=== PATIENT | male | born 1995 | race African-American/Black ===

== ENCOUNTER 2017-03-03 06:35 | Emergency (ER) | payer OTHER ==
[~2017-03-03] VITALS: Ht 188 cm; Wt 85.0 kg
[2017-03-03 06:43] VITALS: TEMP 36.5; O2SAT 100; Ht 188 cm; Wt 85.0 kg
[2017-03-03 08:24] LABS: BENZODIAZEPINE, URINE NEG (NEG); COCAINE,URINE NEG (NEG); PHENCYCLIDINE, URINE NEG (NEG)
[2017-03-03 08:34] LABS: CREATININE 0.96 mg/dl (0.60-1.40)
[2017-03-03 08:35] LABS: CALCIUM 8.9 mg/dl (8.5-10.1)
--- NOTE | 2017-03-03 10:52 | EMERGENCY ROOM VISIT NOTE ---
History Report prepared by Gunner: Luci Ca Under the Supervision of: Dr. Alicia Finley D.O. First contact with patient: 07:03 Chief Complaint: ALCOHOL OVERDOSE Stated Complaint: ALCOHOL Nursing Triage Summary: Patient arrived via EMS. EMS reports patient found in parking lot on campus sleeping on ground. Patient caox2, not alert to location, or state. Patient does not recal how many drinks he had, last thing he remembers, he was leaving a [employer] party. Negative for trauma. 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 He was brought to the ED by EMS who found him sleeping on the ground in a parking lot. He reports he was drinking at a [employer] party. He lives on campus and thinks he was trying to get home. He denies any pain or injury. The history is limited due to the patient's intoxication. 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 Review of Systems See HPI for pertinent positives & negatives. A total of 10 systems reviewed and were otherwise negative. Past Medical & Surgical This is limited secondary to the patient's alcohol intoxication. Family History No pertinent family history stated. Social History Smoking Status: Never Smoker Marital Status: single Occupation Status: [employer] student Current/Historical Medications No Active Prescriptions or Reported Meds Allergies Coded Allergies: No Known Allergies (Unverified , 03/03/17) Physical Exam Vital Signs Date Time Temp Pulse Resp B/P Pulse Ox O2 Delivery O2 Flow Rate FiO2 03/03/17 12:51 104 18 138/83 99 Room Air 03/03/17 10:31 95 20 127/63 100 Room Air 03/03/17 10:05 95 03/03/17 08:31 88 16 100 03/03/17 06:49 88 03/03/17 06:43 36.5 92 16 121/76 100 Room Air 03/03/17 06:43 100 Room Air Physical Exam General: Lethargic, difficult to arouse, answers questions and follows commands. HEENT: Head - normocephalic and atraumatic Pupils are equal, round, and reactive to light at 3 mm. Extraocular eye muscles are intact, and sclera are anicteric. Nose - moist nasal mucosa without discharge. Mouth - moist buccal mucosa. Oropharynx is nonerythematous and there is no tonsillar exudate or edema noted. Neck: Supple; no JVD, nuchal rigidity, cervical lymphadenopathy. Heart: Regular rate and rhythm. There is a normal S1 and S2 with no murmurs, clicks, or gallops appreciated. Lungs: Clear to auscultation bilaterally with no wheezes, rales, or rhonchi. Abdomen: Soft, completely nontender, nondistended, with good bowel sounds. There are no palpable pulsatile masses or hepatosplenomegaly. There is no guarding, rigidity, or rebound noted. Extremities: No evidence of cyanosis, clubbing, or edema. There are easily palpable peripheral pulses. Skin: warm and dry with good turgor and no rashes. Medical Decision & Procedures Laboratory Results 03/03/17 07:35 Test 03/03/17 07:35 03/03/17 07:40 Anion Gap 9.0 mmol/L (3-11) Est Creatinine Clear Calc Drug Dose 142.8 ml/min Estimated GFR () 131.4 Estimated GFR (Non- 113.3 BUN/Creatinine Ratio 11.0 (10-20) Calcium Level 8.9 mg/dl (8.5-10.1) Ethyl Alcohol mg/dL 155.0 mg/dl (0-3) Urine Opiates Screen NEG (NEG) Urine Methadone, Qualitative NEG (NEG) Urine Barbiturates NEG (NEG) Urine Phencyclidine (PCP) Level NEG (NEG) Ur Amphetamine/Methamphetamine NEG (NEG) MDMA (Ecstasy) Screen NEG (NEG) Urine Benzodiazepines Screen NEG (NEG) Urine Cocaine Metabolite NEG (NEG) Urine Marijuana (THC) NEG (NEG) Laboratory results per my review. ED Course 0735: The patient was evaluated in room B3. A complete history and physical examination were performed. Nursing notes ad previous electronic medical records were reviewed. labs were drawn as above. The patient was observed in the prone position to avoid aspiration. He was observing the personnel monitor. 0850: The patient was sleeping comfortably at this time. His vitals were stable. 0945: I reevaluated the patient. His vitals are stable. I woke him up and told him to call for a ride. I discussed the results and treatment plan. He verbalized understanding and agreement. He was discharged home. Medical Decision The patient is a 21 year old male who presents to the ED with alcohol overdose. Differential diagnosis includes alcohol overdose, drug intoxication, head trauma , hypoglycemia. Lab results show: alcohol 155, urine tox screen negative, glucose 100, normal renal function. The patient was found sleeping in a parking lot. He had drank too much alcohol. He denies any other drug use. He has no outward signs of trauma. He was instructed to avoid such excessive alcohol use in the future. Impression Primary Impression: Alcohol intoxication Scribe Attestation The scribe's documentation has been prepared under my direction and personally reviewed by me in its entirety. I confirm that the note above accurately reflects all work, treatment, procedures, and medical decision making performed by me. Departure Information Dispostion Home / Self-Care Prescriptions No Active Prescriptions or Reported Meds Referrals No Doctor, Assigned (PCP) Forms HOME CARE DOCUMENTATION FORM, IMPORTANT VISIT INFORMATION Patient Instructions ED Alcohol Intoxication, My [facility] Additional Instructions Rest. Avoid such excessive alcohol use in the future Take tylenol for headache. Take plenty of clear liquids
[2017-03-03 12:51] VITALS: BP 138/83; PULSE 104; O2SAT 99
== END 2017-03-03 12:54 | disposition home or self-care (01) ==
LOC: C.EDB 06:38
DX: F10.129 Alcohol abuse with intoxication, unspecified (principal); Y90.6 Blood alcohol level of 120-199 mg/100 ml